=== PATIENT | male | born 1950 | race Two or more races ===

== ENCOUNTER 2021-07-11 08:00 | Outpatient (CLI) | payer OTHER | END 2021-07-11 08:30 | disposition home or self-care (01) | LOC: PPH VACUNA 08:00 | DX: Z23 Encounter for immunization (principal) ==

== ENCOUNTER 2022-03-08 08:00 | Outpatient (CLI) | payer OTHER | END 2022-03-08 08:30 | disposition home or self-care (01) | LOC: PPH VACUNA 08:00 | PROVIDERS: ATTEND Emergency Medicine Pediatric Emergency Medicine | DX: Z23 Encounter for immunization (principal) ==

== ENCOUNTER 2023-02-28 08:27 | Outpatient (CLI) | payer OTHER | END 2023-02-28 08:30 | disposition home or self-care (01) | LOC: SONOGRAMA 08:27 | PROVIDERS: ATTEND Pathology Anatomic Pathology & Clinical Pathology | DX: C08.0 Malignant neoplasm of submandibular gland (principal) ==

== ENCOUNTER 2024-10-16 07:57 | Outpatient (CLI) | payer OTHER | END 2024-10-16 08:36 | disposition home or self-care (01) | LOC: MRI 07:57 | PROVIDERS: ATTEND Physical Medicine & Rehabilitation | DX: M51.34 Other intervertebral disc degeneration, thoracic region (principal); M47.817 Spondylosis without myelopathy or radiculopathy, lumbosacral region; M16.0 Bilateral primary osteoarthritis of hip; M51.27 Other intervertebral disc displacement, lumbosacral region; M54.17 Radiculopathy, lumbosacral region | CPT/HCPCS: 72148 ==

== ENCOUNTER 2024-11-18 15:14 | Outpatient (CLI) | payer OTHER | END 2024-11-18 15:28 | disposition home or self-care (01) | LOC: RAD 15:14 | PROVIDERS: ATTEND Radiology Diagnostic Radiology | DX: J45.909 Unspecified asthma, uncomplicated (principal) ==